=== PATIENT | male | born 1965 | race Caucasian/White ===

== ENCOUNTER 2021-02-17 07:37 | Emergency (ER) | payer OTHER ==
[~2021-02-17] VITALS: Ht 165 cm; Wt 75.0 kg
[2021-02-17] MEDS ORDERED: KETOROLAC 30 MG/ML VIAL ONE (07:54)
[2021-02-17] MEDS ORDERED: NS IV 1000 ML 1,000 ML ONE (07:55)
--- NOTE | 2021-02-17 07:56 | ED Back Pain ---
General Chief Complaint: Back Problems Stated Complaint: BACK PAIN Nursing Triage Note: PT REPORTS SUDDEN ONSET OF R SIDED BACK PAIN THAT BEGAN LAST NIGHT. PT REPORTS NAUSEA, URINARY FREQUENCY AND DIAPHORESIS. Source of Information: Patient Exam Limitations: No Limitations History of Present Illness Date Seen by Provider: Feb 17, 2021 Time Seen by Provider: 07:42 Initial Comments Patient to the ER by private conveyance with chief complaint that since 9:00 yesterday he started having some right-sided back pain radiating down his right flank into his right groin. Mild dysuria subjective chills and nausea. No diarrhea or constipation. No history of kidney stones. No urinary discharge. Having some sweats. Has taken nothing for pain. States he is usually quite healthy. Allergies and Home Medications Allergies Coded Allergies: No Known Drug Allergies (Unverified , 06/07/15) Home Medications Cephalexin 500 Mg Tablet, 500 MG PO BID Prescribed by: YAHAIRA ALEJANDRO on 02/17/21 1107 Hydrocodone/Acetaminophen 1 Each Tablet, 1 TAB PO Q6H PRN for PAIN-MODERATE (5- 7) Prescribed by: YAHAIRA ALEJANDRO on 02/17/21 1108 Ondansetron 4 Mg Tab.rapdis, 4 MG PO Q6H PRN for NAUSEA/VOMITING Prescribed by: YAHAIRA ALEJANDRO on 02/17/21 1107 Tamsulosin HCl 0.4 Mg Cap, 0.4 MG PO DAILY Prescribed by: YAHAIRA ALEJANDRO on 02/17/21 1107 Patient Home Medication List Home Medication List Reviewed: Yes Review of Systems Constitutional: No chills, No fever EENTM: No ear discharge, No ear pain Respiratory: No cough, No short of breath Cardiovascular: No chest pain, No edema Gastrointestinal: No abdominal pain, No nausea, No vomiting Genitourinary: No discharge; dysuria; No hematuria Musculoskeletal: see HPI, back pain; No joint pain Skin: No pruritus, No rash Psychiatric/Neurological: Denies Headache, Denies Numbness All Other Systems Reviewed Negative Unless Noted: Yes Past [id number] Hx Patient Social History Tobacco Use?: No Substance use?: No Alcohol Use?: No Pt feels they are or have been: No Physical Exam Vital Signs Vital Signs - First Documented 02/17/21 07:40 Temp 36.0 Pulse 73 Resp 20 B/P (MAP) 184/113 (136) Pulse Ox 99 O2 Delivery Room Air Capillary Refill : Less Than 3 Seconds Height, Weight, BMI Height: 5'5.00" Weight: 170lbs. oz. 77.607991hb; 27.00 BMI Method: General Appearance: WD/WN, Anxious, Moderate Distress HEENT: PERRL/EOMI, Pharynx Normal, Moist Mucous Membranes Neck: Full Range of Motion, Normal Inspection, Non Tender Cardiovascular: Regular Rate, Rhythm, No Edema, Normal Peripheral Pulses Respiratory: Lungs Clear, Normal Breath Sounds, No Accessory Muscle Use, No Respiratory Distress Gastrointestinal: Normal Bowel Sounds, Non Tender, Soft Extremity: Normal Capillary Refill, Normal Inspection, Non Tender Neurologic/Psychiatric: Alert, Oriented x3 Skin: Normal Color, Warm/Dry Progress/Results/Core Measures Results/Orders Lab Results Laboratory Tests Test 02/17/21 07:42 02/17/21 07:50 Range/Units Urine Color YELLOW Urine Clarity CLEAR Urine pH 5.5 5-9 Urine Specific [place] >=1.030 1.016-1.022 Urine Protein NEGATIVE NEGATIVE Urine Glucose (UA) NEGATIVE NEGATIVE Urine Ketones NEGATIVE NEGATIVE Urine Nitrite NEGATIVE NEGATIVE Urine Bilirubin NEGATIVE NEGATIVE Urine Urobilinogen 0.2 < = 1.0 MG/DL Urine Leukocyte Esterase NEGATIVE NEGATIVE Urine RBC (Auto) 3+ H NEGATIVE Urine RBC 50-100 H /HPF Urine WBC 0-2 /HPF Urine Squamous Epithelial Cells NONE /HPF Urine Crystals NONE /LPF Urine Bacteria TRACE /HPF Urine Casts NONE /LPF Urine Mucus MODERATE H /LPF Urine Culture Indicated NO White Blood Count 9.9 4.3-11.0 10^3/uL Red Blood Count 5.37 4.30-5.52 10^6/uL Hemoglobin 16.2 13.3-17.7 g/dL Hematocrit 47 40-54 % Mean Corpuscular Volume 88 80-99 fL Mean Corpuscular Hemoglobin 30 25-34 pg Mean Corpuscular Hemoglobin Concent 34 32-36 g/dL Red Cell Distribution Width 12.5 10.0-14.5 % Platelet Count 223 130-400 10^3/uL Mean Platelet Volume 9.7 9.0-12.2 fL Immature Granulocyte % (Auto) 0 % Neutrophils (%) (Auto) 64 42-75 % Lymphocytes (%) (Auto) 23 12-44 % Monocytes (%) (Auto) 11 0-12 % Eosinophils (%) (Auto) 2 0-10 % Basophils (%) (Auto) 0 0-10 % Neutrophils # (Auto) 6.3 1.8-7.8 10^3/uL Lymphocytes # (Auto) 2.3 1.0-4.0 10^3/uL Monocytes # (Auto) 1.1 H 0.0-1.0 10^3/uL Eosinophils # (Auto) 0.2 0.0-0.3 10^3/uL Basophils # (Auto) 0.0 0.0-0.1 10^3/uL Immature Granulocyte # (Auto) 0.0 0.0-0.1 10^3/uL Sodium Level 141 135-145 MMOL/L Potassium Level 3.3 L 3.6-5.0 MMOL/L Chloride Level 106 98-107 MMOL/L Carbon Dioxide Level 22 21-32 MMOL/L Anion Gap 13 5-14 MMOL/L Blood Urea Nitrogen 14 7-18 MG/DL Creatinine 1.18 0.60-1.30 MG/DL Estimat Glomerular Filtration Rate 64 BUN/Creatinine Ratio 12 Glucose Level 148 H 70-105 MG/DL Calcium Level 9.0 8.5-10.1 MG/DL Corrected Calcium 8.7 8.5-10.1 MG/DL Total Bilirubin 0.6 0.1-1.0 MG/DL Aspartate Amino Transf (AST/SGOT) 17 5-34 U/L Alanine Aminotransferase (ALT/SGPT) 27 0-55 U/L Alkaline Phosphatase 50 40-136 U/L Total Protein 7.5 6.4-8.2 GM/DL Albumin 4.4 3.2-4.5 GM/DL My Orders Orders - YAHAIRA ALEJANDRO Ed Iv/Invasive Line Start (02/17/21 07:53) Lactated Ringers (Lr 1000 Ml Iv Solution (02/17/21 08:00) Ketorolac Injection (Toradol Injection) (02/17/21 08:00) Cbc With Automated Diff (02/17/21 07:53) Comprehensive Metabolic Panel (02/17/21 07:53) Ua Culture If Indicated (02/17/21 07:53) Ondansetron Injection (Zofran Injectio (02/17/21 08:00) Ketorolac Injection (Toradol Injection) (02/17/21 07:54) Ed Iv/Invasive Line Start (02/17/21 07:57) Ns Iv 1000 Ml (Sodium Chloride 0.9%) (02/17/21 08:00) Ns Iv 1000 Ml (Sodium Chloride 0.9%) (02/17/21 07:55) Ns Iv 1000 Ml (Sodium Chloride 0.9%) (02/17/21 08:00) Ct Abd/Pelvis Wo(Kidney Stone) (02/17/21 09:18) Ondansetron Injection (Zofran Injectio (02/17/21 10:45) Promethazine Injection (Phenergan Injec (02/17/21 11:15) Fentanyl Inj (Sublimaze Injection) (02/17/21 11:15) Medications Given in ED Current Medications Medications Dose Ordered Sig/Delgado Route Start Time Stop Time Status Last Admin Dose Admin Fentanyl Citrate 75 mcg ONCE ONCE IVP 02/17/21 11:15 02/17/21 11:16 DC 02/17/21 11:13 75 MCG Ketorolac Tromethamine 30 mg ONCE ONCE IVP 02/17/21 08:00 02/17/21 08:01 DC 02/17/21 07:56 30 MG Ondansetron HCl 4 mg ONCE ONCE IVP 02/17/21 08:00 02/17/21 08:01 DC 02/17/21 07:58 4 MG Ondansetron HCl 4 mg ONCE ONCE IVP 02/17/21 10:45 02/17/21 10:46 DC 02/17/21 10:39 4 MG Promethazine HCl 25 mg ONCE ONCE IVP 02/17/21 11:15 02/17/21 11:16 DC 02/17/21 11:16 25 MG Vital Signs/I&O 02/17/21 02/17/21 07:40 12:30 Temp 36.0 36.0 Pulse 73 73 Resp 20 18 B/P (MAP) 184/113 (136) 170/98 (136) Pulse Ox 99 96 O2 Delivery Room Air Room Air Blood Pressure Mean: 136 Progress Progress Note #1: Time: 11:00 Progress Note Toradol Zofran and a liter of fluids as well as CT without IV contrast kidney stone study did reveal a kidney stone. Progress Note #2: Time: 12:21 Progress Note On repeat examination the patient was writhing in pain and having active vomiting so another dose of Zofran was given as well as fentanyl 75 mcg. Another dose of Phenergan was given and his symptoms are now under control. He is ready to go home. Diagnostic Imaging Diagonstic Imaging: CT Plain Films/CT/US/NM/MRI: abdomen, pelvis Comments [facility]. [place], [place] NAME: TRACIE DIALLO [facility] REC#: [id number] PT STATUS: REG ER : 1965 PHYSICIAN: YAHAIRA ALEJANDRO MD ADMIT DATE: 02/17/21/ER Signed Date of Exam:02/17/21 CT ABD/PELVIS WO(KIDNEY STONE) INDICATION: Flank pain on right side. TECHNIQUE: Multiple contiguous axial images were obtained through the abdomen and pelvis without the use of intravenous contrast. Auto Exposure Controls were utilized during the CT exam to meet ALARA standards for radiation dose reduction. There is no previous study for comparison. FINDINGS: Visualized portions of the lung bases are clear. There were no pleural fluid collections. There is no free intraperitoneal air. The liver shows no focal lesions. Gallbladder appears normal. The spleen, right adrenal, and pancreas appear normal. There is a small nodule in the left adrenal gland measuring about 1.5 cm, which may be a small incidental adenoma. The left kidney appears normal. The right kidney shows multiple small intrarenal calculi. There is hydronephrosis and hydroureter on the right side, down to the level of a 2 mm stone in the right distal ureter near the UVJ. There is no retroperitoneal mass or adenopathy. There is no ascites or abnormal fluid collection. Visualized bowel loops including the appendix appear normal. There are few uncomplicated clonic diverticuli. There is no pelvic mass or free fluid. IMPRESSION: There is hydronephrosis and hydroureter on the right side, secondary to a 2 mm stone in the right UVJ. There are additional small intrarenal calculi in the right kidney. There is a small incidental probable adenoma in the left adrenal gland. Dictated by: Dictated on workstation # [id number] Dict: 02/17/21 0947 Trans: 02/17/21 1051 [id number] Interpreted by: DIONICIO DIANE MD Electronically signed by: DIONICIO DIANE MD 02/17/21 1051 Reviewed: Reviewed by Me Departure Impression Primary Impression: Ureteral calculus Disposition: 01 HOME, SELF-CARE Condition: Stable Departure-Patient Inst. Decision time for Depature: 11:03 Referrals: NO,LOCAL PHYSICIAN (PCP) Primary Care Physician DEBORAH LOPEZ MD Patient Instructions: Kidney Stones (DC) Add. Discharge Instructions: Drink lots of fluids. Tylenol 650 mg every 8 hours as needed for pain. Motrin 800 mg every 8 hours as needed for pain. Heat applied to the back as needed. Hydrocodone 1 tablet every 6 hours as necessary for breakthrough pain. Flomax 1 capsule daily until you pass the stones. Ondansetron 1 tablet every 6 hours under the tongue as necessary for nausea and/or vomiting. Keflex 1 capsule twice a day for the next week to treat possible UTI. Strain your urine using the strainer to see when the stones pass. Occasionally stones will break up and not be caught in the strainer. Symptoms should resolve 1 to 2 days after the passing of stones. If your symptoms are going on into early next week then I suggest you follow-up with Dr. Lopez, urology. Return to the nearest ER if you are having intractable pain and/or nausea, fever etc. All discharge instructions reviewed with patient and/or family. Voiced understanding. Scripts Ondansetron (Ondansetron Odt) 4 Mg Tab.rapdis 4 MG PO Q6H PRN for NAUSEA/VOMITING, #10 TAB 0 Refills Prov: YAHAIRA ALEJANDRO 02/17/21 Hydrocodone/Acetaminophen (Hydrocodone-Acetamin 5-325 mg) 1 Each Tablet 1 TAB PO Q6H PRN for PAIN-MODERATE (5-7), #15 TAB 0 Refills Prov: YAHAIRA ALEJANDRO 02/17/21 Tamsulosin HCl (Flomax) 0.4 Mg Cap 0.4 MG PO DAILY for 7 Days, #7 CAP 0 Refills Prov: YAHAIRA ALEJANDRO 02/17/21 Cephalexin (Cephalexin) 500 Mg Tablet 500 MG PO BID for 7 Days, #14 TAB 0 Refills Prov: YAHAIRA ALEJANDRO 02/17/21 Work/School Note: Work Release Form Date Seen in the Emergency Department: Feb 17, 2021 Return to Work: Feb 21, 2021 Restrictions: No Restrictions Copy Copies To 1: DEBORAH LOPEZ MD, TITUS J Feb 17, 2021 07:56
[2021-02-17 08:00] LABS: BASOPHILS % (AUTO) 0 % (0-10); EOSINOPHILS # (AUTO) 0.2 10^3/uL (0.0-0.3); EOSINOPHILS % (AUTO) 2 % (0-10); HEMATOCRIT 47 % (40-54); HEMOGLOBIN 16.2 g/dL (13.3-17.7); LYMPHOCYTES # (AUTO) 2.3 10^3/uL (1.0-4.0); LYMPHOCYTES % (AUTO) 23 % (12-44); MEAN CORPUSCULAR HEMOGLOBIN 30 pg (25-34); MEAN CORPUSCULAR HGB CONC 34 g/dL (32-36); MEAN CORPUSCULAR VOLUME 88 fL (80-99); MEAN PLATELET VOLUME 9.7 fL (9.0-12.2); MONOCYTES # (AUTO) 1.1 10^3/uL (0.0-1.0); MONOCYTES % (AUTO) 11 % (0-12); NEUTROPHILS # (AUTO) 6.3 10^3/uL (1.8-7.8); NEUTROPHILS % (AUTO) 64 % (42-75); PLATELET COUNT 223 10^3/uL (130-400); WHITE BLOOD COUNT 9.9 10^3/uL (4.3-11.0)
[2021-02-17] MEDS ORDERED: NS IV 1000 ML 1,000 ML IV ONE (08:00)
[2021-02-17] MEDS ORDERED: ONDANSETRON 4 MG/2 ML (SDV) Z0FRAN IVP ONE ×2 (08:00→10:45)
[2021-02-17] MEDS ORDERED: LACTATED RINGERS 1,000 ML IV ONE (08:00)
[2021-02-17] MEDS ORDERED: KETOROLAC 30 MG/ML VIAL IVP ONE (08:00)
[2021-02-17] MEDS ORDERED: NS IV 1000 ML 1,000 ML IV SCH (08:00)
[2021-02-17 08:01] LABS: BILIRUBIN,URINE NEGATIVE (NEGATIVE); CLARITY,URINE CLEAR; COLOR,URINE YELLOW; GLUCOSE, URINE (UA) NEGATIVE (NEGATIVE); KETONES,URINE NEGATIVE (NEGATIVE); LEUKOCYTE ESTERASE ,URINE NEGATIVE (NEGATIVE); NITRITE,URINE NEGATIVE (NEGATIVE); PH,URINE 5.5 (5-9); PROTEIN,URINE NEGATIVE (NEGATIVE)
[2021-02-17 08:07] LABS: ALBUMIN 4.4 GM/DL (3.2-4.5)
[2021-02-17 08:08] LABS: POTASSIUM 3.3 MMOL/L (3.6-5.0)
[2021-02-17 08:10] LABS: TOTAL PROTEIN 7.5 GM/DL (6.4-8.2)
[2021-02-17 08:11] LABS: BACTERIA,URINE TRACE /HPF; RBC,URINE 50-100 /HPF; WBC,URINE 0-2 /HPF
[2021-02-17 08:12] LABS: BILIRUBIN,TOTAL 0.6 MG/DL (0.1-1.0)
[2021-02-17 08:14] LABS: CREATININE SERUM 1.18 MG/DL (0.60-1.30)
--- NOTE | 2021-02-17 09:55 | Diagnostic Imaging Report ---
INDICATION: Flank pain on right side. TECHNIQUE: Multiple contiguous axial images were obtained through the abdomen and pelvis without the use of intravenous contrast. Auto Exposure Controls were utilized during the CT exam to meet ALARA standards for radiation dose reduction. There is no previous study for comparison. FINDINGS: Visualized portions of the lung bases are clear. There were no pleural fluid collections. There is no free intraperitoneal air. The liver shows no focal lesions. Gallbladder appears normal. The spleen, right adrenal, and pancreas appear normal. There is a small nodule in the left adrenal gland measuring about 1.5 cm, which may be a small incidental adenoma. The left kidney appears normal. The right kidney shows multiple small intrarenal calculi. There is hydronephrosis and hydroureter on the right side, down to the level of a 2 mm stone in the right distal ureter near the UVJ. There is no retroperitoneal mass or adenopathy. There is no ascites or abnormal fluid collection. Visualized bowel loops including the appendix appear normal. There are few uncomplicated clonic diverticuli. There is no pelvic mass or free fluid. IMPRESSION: There is hydronephrosis and hydroureter on the right side, secondary to a 2 mm stone in the right UVJ. There are additional small intrarenal calculi in the right kidney. There is a small incidental probable adenoma in the left adrenal gland. Dictated by: Dictated on workstation # [id number]
[2021-02-17] MEDS ORDERED: ONDA4TAB11 PO (11:07)
[2021-02-17] MEDS ORDERED: ACHD5005 PO (11:07)
[2021-02-17] MEDS ORDERED: CEPH500T PO (11:07)
[2021-02-17] MEDS ORDERED: TMSL.4C PO (11:07)
[2021-02-17] MEDS ORDERED: fentaNYL INJ 100 MCG/2 ML AMP IVP ONE (11:15)
[2021-02-17] MEDS ORDERED: PROMETHAZINE INJ 25 MG/ML (PHENERGAN) AMP IVP ONE (11:15)
[2021-02-17 12:30] VITALS: BP 170/98
== END 2021-02-17 12:30 | disposition home or self-care (01) ==
LOC: EDUNIT# 07:37 → ER 07:39
DX: N13.2 Hydronephrosis with renal and ureteral calculous obstruction (principal)
CPT/HCPCS: 36415; 74176; 80053; 81000; 85025